=== PATIENT | male | born 1990 | race American Indian/Alaskan Native ===

== ENCOUNTER 2017-02-17 02:20 | Emergency (ER) | payer OTHER ==
[2017-02-17 02:40] VITALS: BMI 25.5
--- NOTE | 2017-02-17 02:54 | PDOC ---
History of Present Illness - General Chief Complaint: Toothache Stated Complaint: POST SURGERY BLEEDING GUMS Time Seen by Provider: 02/17/17 02:29 History Source: Patient Exam Limitations: No Limitations - History of Present Illness Initial Comments: 02/17/17 03:11 Oral surgeon: Dr. Cricket Calix [phone] PMhx: None Allergies: NKDA 26-year-old male presents to the emergency department complaining of bleeding to the right lower gums. Patient states he had his right upper and lower wisdom extracted this afternoon and it has been bleeding for approximately 7 hours. Patient called his oral surgeon who was not available to return his call. Patient denies dizziness, lightheadedness, headaches, toothache, difficulty swallowing, chest pain or shortness of breath. Denies taking blood thinners Timing/Duration: 4-6 hours Past History - Past Medical History Allergies/Adverse Reactions: Allergies Allergy/AdvReac Type Severity Reaction Status Date / Time No Known Allergies Allergy Verified 02/17/17 02:35 Other medical history: denies - Psycho/Social/Smoking Cessation Hx Suicidal Ideation: No Smoking History: Never smoked Review of Systems - Review of Systems Able to Perform ROS?: Yes Comments:: 02/17/17 03:12 CONSTITUTIONAL: Absent: fever, chills, diaphoresis, generalized weakness, malaise, loss of appetite HEENT: Absent: rhinorrhea, nasal congestion, throat pain, throat swelling, difficulty swallowing, mouth swelling, ear pain, eye pain, visual Changes CARDIOVASCULAR: Absent: chest pain, loss of consciousness, palpitations, irregular heart rate, peripheral edema RESPIRATORY: Absent: cough, shortness of breath, dyspnea with exertion, orthopnea, wheezing, stridor, hemoptysis GASTROINTESTINAL: Absent: abdominal pain, abdominal distension, nausea, vomiting, diarrhea, constipation, melena, hematochezia GENITOURINARY: Absent: dysuria, frequency, urgency, hesitancy, hematuria, flank pain, genital pain MUSCULOSKELETAL: Absent: myalgia, arthralgia, joint swelling SKIN: Absent: rash, itching, pallor HEMATOLOGIC/IMMUNOLOGIC: Absent: easy bleeding, easy bruising, lymphadenopathy, frequent infections ENDOCRINE: Absent: unexplained weight gain, unexplained weight loss, heat intolerance, cold intolerance NEUROLOGIC: Absent: headache, focal weakness or paresthesias, dizziness, unsteady gait, seizure, mental status changes, bladder or bowel incontinence PSYCHIATRIC: Absent: anxiety, depression, suicidal or homicidal ideation, hallucinations. Is the patient limited [place]ijani proficient: No *Physical Exam - Vital Signs Last Vital Signs Temp Pulse Resp BP Pulse Ox 77 18 150/76 99 02/17/17 02:31 02/17/17 02:31 02/17/17 02:31 02/17/17 02:31 - Physical Exam Comments: 02/17/17 03:13 GENERAL: Well developed, well nourished. Awake and alert. No acute distress. HEENT: Normocephalic, atraumatic. PERRLA, EOMI. No conjunctival pallor. Sclera are non- icteric. Moist mucous membranes. Oropharynx is clear. NECK: Supple. Full ROM. No JVD. Carotid pulses 2+ and symmetric, without bruits. No thyromegaly. No lymphadenopathy. CARDIOVASCULAR: Regular rate and rhythm. No murmurs, rubs, or gallops. Distal pulses are 2+ and symmetric. PULMONARY: No evidence of respiratory distress. Lungs clear to auscultation bilaterally. No wheezing, rales or rhonchi. SKIN: Warm and dry. Normal capillary refill. No rashes. No jaundice. Right lower gum where wisdom tooth was extracted; active blood oozing 02/17/17 03:14 Warm tea bag attempted due to tannic acid; unsuccessful Surgicel placed onto right lower wisdom tooth area; gauze *DC/Admit/Observation/Transfer Diagnosis at time of Disposition: Gums, bleeding - Discharge Dispostion Condition at time of disposition: Stable Admit: No - Referrals Referrals: STAFF,NOT ON [Primary Care Provider] - - Patient Instructions Additional Instructions: Follow-up with your oral surgeon. Take Tylenol as needed for pain Return back to the emergency department for severe/persistent/worsening or recurrent symptoms
[2017-02-17 04:54] LABS: INR 1.04 (0.82-1.09); PROTHROMBIN TIME (PATIENT) 11.5 SEC (9.98-11.88)
[2017-02-17 06:24] VITALS: BP 141/72; PULSE 72
== END 2017-02-17 06:27 | disposition home or self-care (01) ==
LOC: JER 02:20
DX: K06.8 Other specified disorders of gingiva and edentulous alveolar ridge (principal); K08.109 Complete loss of teeth, unspecified cause, unspecified class; M96.831 Postprocedural hemorrhage of a musculoskeletal structure following other procedure; Y83.8 Other surgical procedures as the cause of abnormal reaction of the patient, or of later complication, without mention of misadventure at the time of the procedure; Y92.89 Other specified places as the place of occurrence of the external cause
CPT/HCPCS: 36415; 85610; 99281-25